=== PATIENT | male | born 1950 ===

== ENCOUNTER 2019-01-13 07:16 | Day surgery (SDC) | payer MEDICARE, OTHER ==
--- NOTE | 2019-01-12 08:44 | Opthalmology H&P ---
Ophthalmology H&P H&P Chief Complaint: decreased vision in right eye HPI Vision Affects Ability to: read, drive Past Ocular History: glaucoma HPI Narrative Blurry Vision Exam Visual Acuity: OD: 20/50+2 OS: 20/40 Tension: OD: 15 OS: 14 Eye Exam: normal OU: external exam, palpebral fissure-width, marginal reflex distance, levator function, corneas, anterior chambers, fundus exam; findings: lens - NUCLEAR SCLEROTIC CATARACT OD Assessment/Plan Treatment Plan: cataract extraction w/ lens implant Goals of Treatment: improvement of vision, enhance quality of life Attestation Attestation The risks and benefits of the surgery as well as alternative procedures were explained to the patient in detail. Talon Wharton MD Jan 12, 2019 08:44
--- NOTE | 2019-01-12 08:46 | Pre-Procedure Note/Attestation ---
Pre-Procedure Note/Attestation Complete Prior to Procedure Planned Procedure: right Procedure Narrative: Cataract Extraction With Intraocular Lens Implant Right Eye Indications for Procedure Pre-Operative Diagnosis: Nuclear Sclerotic Cataract Right Eye Attestation I attest that I discussed the nature of the procedure; its benefits; risks and complications; and alternatives (and the risks and benefits of such alternatives ), prior to the procedure, with the patient (or the patient's legal specialty sales representative). I attest that, if there was a reasonable possibility of needing a blood transfusion, the patient (or the patient's legal specialty sales representative) was given the [facility] standardized written summary, pursuant to the Brock Se Blood Safety Act ([place] Health and Safety Code # 1645, as amended). I attest that I re-evaluated the patient just prior to the surgery and that there has been no change in the patient's H&P, except as documented below: Talon Wharton MD Jan 12, 2019 08:46
[~2019-01-13] VITALS: Ht 165.1 cm; Wt 88.5 kg
[2019-01-13] VITALS (8 sets, daily range): BP systolic 123–142; BP diastolic 70–82
[~2019-01-13 07:16] MED LIST: Akten 3.5% 1ml Btl RIGHT EYE ONE; Cyclopentolate 1% Opth Sol 2ml RIGHT EYE SCH; Dexamethasone 4mg/ml vial ONE; Diclofenac Sod 0.1% Op Soln RIGHT EYE SCH; Maxitrol Opth Oint 3.5gm ONE; Phenylephrine 10% Opth Soln 5ml RIGHT EYE SCH; Pilocarpine 1% Opth 15ml Soln ONE; Pred Forte 1% Opth Susp 1ml ONE; Proparacaine 0.5% Opth Soln 15ml RIGHT EYE ONE; Tetracaine 0.5% Opth 4ml Soln RIGHT EYE ONE; Tobramycin Op Soln 0.3% 5ml RIGHT EYE SCH; Tropicamide 1% Opth 15ml Soln RIGHT EYE SCH
[2019-01-13] MEDS ORDERED: EPINEPHrine 1mg/1ml Amp ONE (09:33)
[2019-01-13] MEDS ORDERED: Povidone-Iodine 5% opth solution ONE (09:33)
[2019-01-13] MEDS ORDERED: BSS 500ml btl ONE (09:33)
[2019-01-13] MEDS ORDERED: BSS 15ml BTL ONE (09:33)
[2019-01-13] MEDS ORDERED: Sodium Hyaluronate 14 mg/ml 0.85ml ONE (09:34)
[2019-01-13] MEDS: Phenylephrine 10% Opth Soln 5ml RIGHT EYE SCH ×3 (10:47→11:08)
[2019-01-13] MEDS: Tropicamide 1% Opth 15ml Soln RIGHT EYE SCH ×3 (10:47→11:07)
[2019-01-13] MEDS: Tobramycin Op Soln 0.3% 5ml RIGHT EYE SCH ×3 (10:48→11:08)
[2019-01-13] MEDS: Cyclopentolate 1% Opth Sol 2ml RIGHT EYE SCH ×4 (10:48→11:10)
[2019-01-13] MEDS: Diclofenac Sod 0.1% Op Soln RIGHT EYE SCH ×3 (10:48→11:08)
[2019-01-13] MEDS ORDERED: PANTOPRAZOLE SO40 MG ORAL (11:31)
--- NOTE | 2019-01-13 13:04 | Anethesia Preoperative Eval ---
Anesthesia Pre-op PMH/ROS General Date of Evaluation: Jan 13, 2019 Time of Evaluation: 12:59 Anesthesiologist: Shaggy ASA Score: ASA 2 Mallampati Score Class I : Soft palate, uvula, fauces, pillars visible Class II: Soft palate, uvula, fauces visible Class III: Soft palate, base of uvula visible Class IV: Only hard plate visible Mallampati Classification: Class II Surgeon: Akiko Diagnosis: L eye cataract Surgical Procedure: L eye cataract extraction Anesthesia History: none Social History: smoking - h/o Family History: no anesthesia problems Allergies: Coded Allergies: No Known Allergies (Unverified , 01/12/19) Patient NPO?: Yes Past Medical History Cardiovascular: Reports: HTN - mild; Denies: CAD, [place], valve dz, arrhythmia, other Pulmonary: Denies: asthma, COPD, KAREN, other Gastrointestinal/Genitourinary: Reports: GERD; Denies: CRI, ESRD, other Neurologic/Psychiatric: Denies: dementia, CVA, depression/anxiety, TIA, other Endocrine: Denies: DM, hypothyroidism, steroids, other HEENT: Reports: cataract (L), cataract (R); Denies: glaucoma, DEERING (L), DEERING (R), other Hematology/Immune: Denies: anemia, DVT, bleeding disorder, other Musculoskeletal/Integumentary: Reports: DJD; Denies: OA, RA, DDD, edema, other Other: obesity - overweight PMH Narrative: as above PSxH Narrative: R eye cataract ortho Sx Anesthesia Pre-op Phys. Exam Physician Exam Last Vital Signs Date Time Temp Pulse Resp B/P (MAP) Pulse Ox O2 Delivery O2 Flow Rate FiO2 01/13/19 11:23 Room Air 01/13/19 11:10 97.5 62 18 124/79 96 Constitutional: NAD Neurologic: CN 2-12 intact Respiratory: CTA Gastrointestinal: S/NT/ND Airway Exam Mallampati Score: Class II MO: limited Neck: stiff ROM: limited Teeth: missing Dentures: no upper, no lower Anesthesia Pre-op A/P Labs see chart Studies Pre-op Studies: EKG - NSR Risk Assessment & Plan Assessment: ASA 2 Plan: Spenser Shah MD Jan 13, 2019 13:04
[2019-01-13] MEDS ORDERED: acetaZOLAMIDE 500mg Inj ONE (13:18)
--- NOTE | 2019-01-13 14:17 | Immediate Post-Op Evaluation ---
Immediate Post-Op Evalulation Immediate Post-Op Evalulation Procedure: R eye cataract extraction with IOL Date of Evaluation: Jan 13, 2019 Time of Evaluation: 14:16 IV Fluids: 800 Blood Products: none Estimated Blood Loss: none Urinary Output: none Blood Pressure Systolic: 143 Blood Pressure Diastolic: 68 Pulse Rate: 72 Respiratory Rate: 20 O2 Sat by Pulse Oximetry: 98 Temperature (Fahrenheit): 97.6 Pain Score (1-10): 1 Nausea: No Vomiting: No Patient Status: awake, patent, none Hydration Status: adequate Spenser Coon MD Jan 13, 2019 14:17
[2019-01-13] MEDS ORDERED: NS Irrig 1000ml ONE (15:30)
[2019-01-13] MEDS ORDERED: Sterile Water Irrig 1000ml IRRIG ONE (15:30)
[2019-01-13] MEDS ORDERED: fentaNYL 100 mcg/2 mL IV ONE (15:30)
[2019-01-13] MEDS ORDERED: Propofol 200mg/20ml IV ONE (15:30)
[2019-01-13] MEDS ORDERED: LR 1000ml ONE (15:30)
--- NOTE | 2019-01-13 18:33 | 48 Hour Post Anesthesia Eval ---
Post Anesthesia Evaluation Procedure: R eye cataract extraction with IOL Date of Evaluation: Jan 13, 2019 Time of Evaluation: 18:32 Blood Pressure Systolic: 142 0: 74 Pulse Rate: 62 Respiratory Rate: 20 Temperature (Fahrenheit): 97.3 O2 Sat by Pulse Oximetry: 98 Airway: patent Nausea: No Vomiting: No Pain Intensity: 1 Hydration Status: adequate Cardiopulmonary Status: stable Mental Status/LOC: patient returned to baseline Follow-up Care/Observations: n/a Post-Anesthesia Complications: none Follow-up care needed: ready to discharge Spenser Coon MD Jan 13, 2019 18:33
--- NOTE | 2019-01-16 13:37 | Brief Operative Note ---
Immediate Post Operative Note Operative Note Chief Complaint: Blurry vision Pre-op Diagnosis: Nuclear Sclerotic Cataract Right Eye Procedure: Cataract extraction with intraocular lens implant right eye Post-op Diagnosis: Pseudophakia OD Post-op Diagnosis: same as pre-op Surgeon: Talon Wharotn MD Anesthesiologist: Spenser Coon MD Anesthesia: MAC Specimen: none Complications: none Condition: stable Fluids: LR Estimated Blood Loss: none Drains: none Implant(s) used?: Yes Talon Wharton MD Jan 16, 2019 13:37
--- NOTE | 2019-01-16 13:42 | Operative Note - PDOC ---
Operative Note Operative Note Date of Operation/Procedure: Jan 13, 2019 Chief Complaint: Blurry vision Pre-op Diagnosis: Nuclear Sclerotic Cataract Right Eye Procedure: Cataract extraction with intraocular lens implant right eye Post-op Diagnosis: Pseudophakia OD Post-op Diagnosis: same as pre-op Surgeon: Talon Wharton MD Anesthesiologist: Spenser Coon MD Anesthesia: MAC Specimen: none Complications: none Condition: stable Fluids: LR Estimated Blood Loss: none Drains: none Implant(s) used?: Yes - IOL Indications for Procedure Nuclear Sclerotic Cataract Right Eye Description of Procedure This patient has been complaining visually significant cataract in the right eye with the best corrected visual acuity of 20/60 under moderate glare conditions worse. The patient complains of difficulties with glare in performing activities of daily living and wants to manage personal affairs with comfort and accuracy and see well enough to move with safety at home and outdoors. The risks, benefits and alternatives of the procedure were discussed with the patient in the office prior to scheduling surgery. All questions from the patient were answered after the surgical procedure was explained in detail. The risks of the procedure as explained to the patient include, but are not limited to, pain, infection, bleeding, loss of vision, retinal detachment, need for further surgery, loss of lens nucleus, double vision, etc. Alternative procedures were discussed which include, to do nothing or seek a second opinion. Informed consent for this procedure was obtained from the patient. The patient was referred to a primary care physician for a cardiopulmonary clearance prior to surgery, after proper evaluation was done patient was properly scheduled for outpatient surgery. The patient was brought to the operating room where the anesthesiologist established I.V. lines and cardiac monitoring leads. Mild intravenous sedation was administered. The patient was then prepared with a 5% solution of povidone -iodine to the conjunctival fornix and lashes, and a 5% solution of povidone- iodine to the lids and periorbital skin. The patient was then draped in the usual sterile fashion. A lid speculum was then placed in the operative eye. A keratome blade was then used to create a biplanar incision into the anterior chamber. Viscoelastics was then instilled into the anterior chamber. A capsulorrhexis was then fashioned with an utrata forceps. BSS and a cannula were then used to hydrodissect and hydro delineate the lens. Paracentesis incision was made at 3 o'clock with sharp blade. The phacoemulsification unit, after being properly adjusted and tested, was then used to emulsify the nucleus. Residual cortical material was aspirated with the irrigation and aspiration unit. Healon was then instilled into the anterior chamber. The corneal wound was then enlarged to the size of the optic with the nasim keratome blade. The intraocular lens was then inspected for right power and size and thought to be satisfactory. Then the lens was gently placed in the capsular bag. Positioning within the capsular bag was confirmed by direct visualization. Optic centration was accomplished with a Sinskey hook. Viscoelastics was removed from the anterior chamber using the irrigation and aspiration unit. The corneal wound was then tested for leaks and none were found. The lid speculum were then removed. Sponge and needle counts were correct. An eye patch and shield were placed over the operative eye. The patient was taken to the recovery room in stable condition. There were no complications. The patient tolerated the procedure well. The patient was then transferred to the ambulatory surgery unit in stable and satisfactory condition , was given detailed written instructions and asked to follow up in the office the next day. Talon Wharton MD Jan 16, 2019 13:42
== END 2019-01-13 15:55 | disposition home or self-care (01) ==
LOC: SUR 07:16
DX: H25.11 Age-related nuclear cataract, right eye (principal); Z87.891 Personal history of nicotine dependence; I10 Essential (primary) hypertension; K21.9 Gastro-esophageal reflux disease without esophagitis; E66.3 Overweight; Z68.32 Body mass index [BMI] 32.0-32.9, adult
CPT/HCPCS: 66984; J0171; J1100; J1120; J2704; J3010; J3370; V2632; 94003; 94150